=== PATIENT | male | born 1940 | race Caucasian/White ===

== ENCOUNTER 2021-08-18 14:13 | Emergency (ER) | payer OTHER ==
[~2021-08-18] VITALS: Ht 177.8 cm; Wt 80.7 kg
[2021-08-18 14:28] VITALS: BP 107/68
--- NOTE | 2021-08-18 14:36 | NUR ---
DR PONCE AT BEDSIDE EVALUATING PT
[2021-08-18] MEDS ORDERED: PRED20TA5 PO (15:43)
[2021-08-18] MEDS ORDERED: IBUP-2213 PO (15:43)
[2021-08-18 16:00] VITALS: BP 107/68
--- NOTE | 2021-08-18 16:00 | NUR ---
Patient discharged with v/s stable. Written and verbal after care instructions FOR COUGH given and explained. Patient alert, oriented and verbalized understanding of instructions. Ambulatory with steady gait. All questions addressed prior to discharge. ID band removed. Patient advised to follow up with PMD. Rx of IBUPROFEN AND PREDISONE given. Opportunity to ask questions provided and answered.
--- NOTE | 2021-08-18 18:54 | NUR ---
The patient's care was reviewed and supervised by Azra Carlos RN.
== END 2021-08-18 15:56 | disposition home or self-care (01) ==
LOC: MED 14:13
DX: R05.9 Cough, unspecified (principal); E11.9 Type 2 diabetes mellitus without complications; I10 Essential (primary) hypertension; Z98.890 Other specified postprocedural states
CPT/HCPCS: 71045; 99283; Q0092